=== PATIENT | male | born 1965 | race Caucasian/White ===

== ENCOUNTER 2022-04-25 09:35 | Emergency (ER) | payer OTHER ==
[~2022-04-25] VITALS: Ht 175.3 cm; Wt 81.6 kg
[2022-04-25 09:45] VITALS: BP 139/90
--- NOTE | 2022-04-25 09:45 | NUR ---
BIBS WANTING MEDICATION REFILL FOR INHALER, PT 98% ON ROOM AIR.
--- NOTE | 2022-04-25 09:47 | NUR ---
DR PERSON EVALUTATING PT
[2022-04-25] MEDS ORDERED: ALBU8.5H8 INH (09:54)
--- NOTE | 2022-04-25 09:59 | NUR ---
Patient discharged to home in stable condition. Written and verbal after care instructions given. Patient verbalizes understanding of instruction.
== END 2022-04-25 09:59 | disposition home or self-care (01) ==
LOC: ER 09:35
DX: J45.909 Unspecified asthma, uncomplicated (principal); Z76.0 Encounter for issue of repeat prescription; Z88.2 Allergy status to sulfonamides; Z88.1 Allergy status to other antibiotic agents; Z79.899 Other long term (current) drug therapy